=== PATIENT | male | born 1940 | race Caucasian/White ===

== ENCOUNTER 2020-12-30 06:54 | Inpatient (IN) | payer MEDICARE, OTHER ==
[~2020-12-30 06:54] MED LIST: Povidone-Iodine 10% Soln 118.25 ML Bottle ONE
[2020-12-30] MEDS ORDERED: Lactated Ringers 1,000 ML IV SCH (07:30)
[2020-12-30] MEDS ORDERED: Nozin Nasal Sanitizer NASBOTH ONE (08:00)
[2020-12-30] MEDS ORDERED: fentaNYL 100 MCG/2 ML SDV ONE (08:29)
[2020-12-30] MEDS ORDERED: Propofol 200 MG/20 ML SDV ONE (08:29)
[2020-12-30] MEDS ORDERED: ceFAZolin 2 GM in Premix Bag 1 BAG IV ONE (08:30)
[2020-12-30] MEDS ORDERED: Midazolam 1 MG/ML 2 ML SDV ONE ×2 (08:30→08:56)
[2020-12-30] MEDS ORDERED: ePHEDrine 50 MG/ML SDV ONE (10:14)
[2020-12-30] MEDS ORDERED: Ondansetron 4 MG/2 ML SDV IVPUSH PRN (11:34)
[2020-12-30] MEDS ORDERED: Magnesium Hydroxide 400 MG/5 ML Susp 30 ML Cup PO PRN (11:34)
[2020-12-30] MEDS ORDERED: Nitroglycerin 0.4 MG Tab.SL SL PRN (11:40)
[2020-12-30] MEDS ORDERED: diphenhydrAMINE 25 MG Cap PO PRN (11:44)
[2020-12-30] MEDS ORDERED: ceFAZolin 1 GM in Sodium Chloride 0.9% 50 ML IV SCH ×2 (11:45→12:30)
[2020-12-30] MEDS ORDERED: Sodium Chloride 0.9% 1,000 ML IV SCH (11:45)
[2020-12-30] MEDS: Acetaminophen/oxyCODONE 325-5 MG Tab PO PRN ×2 (12:38→21:15)
[2020-12-30] MEDS: Morphine 2 MG/ML SYRINGE IV PRN ×2 (13:36→14:34)
--- NOTE | 2020-12-30 14:55 | CR ---
Pelvis 1V or 2V CLINICAL HISTORY: Status post DAVIN FINDINGS: Patient is status post recent total hip arthroplasty. Components appear well seated. There is some osteoarthritic change in the right hip IMPRESSION: Status post total left hip arthroplasty
[2020-12-30] MEDS ORDERED: Ketorolac 30 MG/ML SDV IVPUSH ONE (15:40)
[2020-12-30] MEDS: ceFAZolin 1 GM in Premix Bag 1 BAG IV SCH (17:55)
[2020-12-30] MEDS ORDERED: GLUCOSAMINE SULFATE 1000 MG PO SCH ×2 (21:00)
[2020-12-30] MEDS ORDERED: [UNRECOGNIZED DRUG - OTHER] PO SCH ×2 (21:00)
[2020-12-30] MEDS ORDERED: Docusate Sodium 100 MG Cap PO SCH (21:00)
[2020-12-30] MEDS: LORazepam 1 MG Tab PO PRN (21:15)
[2020-12-30] MEDS: Docusate Sodium 100 MG Cap PO SCH (21:17)
[2020-12-30] MEDS: GLUCOSAMINE 1000 MG PO SCH (21:17)
[2020-12-30] MEDS: Nozin Nasal Sanitizer NASBOTH SCH (21:23)
[2020-12-30] MEDS: Cyclobenzaprine 10 MG Tab PO PRN (23:33)
[2020-12-31] MEDS: ceFAZolin 1 GM in Premix Bag 1 BAG IV SCH ×2 (02:34→10:40)
[2020-12-31] MEDS: Acetaminophen/oxyCODONE 325-5 MG Tab PO PRN ×2 (02:38→10:40)
--- NOTE | 2020-12-31 08:31 | PCM.SURGPN ---
- General Info Date of Service: 12/31/20 Date of Surgery/Procedure: 12/30/20 POD#: 1 Post-Op Diagnosis: left hip osteoarthritis Functional Status: Reports: Pain Controlled, Tolerating Diet - Review of Systems General: Reports: No Symptoms Musculoskeletal: Reports: Leg Pain (left ), Joint Pain (left hip ) Skin: Reports: Other (dried drainage from incision ) Neurological: Reports: No Symptoms Psychiatric: Reports: No Symptoms - Patient Data Vitals - Most Recent: Last Vital Signs Temp 96.9 F 12/31/20 07:26 Pulse 75 12/31/20 07:26 Resp 18 12/31/20 07:26 BP 114/64 12/31/20 07:26 Pulse Ox 95 12/31/20 07:26 Weight - Most Recent: 204 lb I&O - Last 24 Hours: Intake & Output 12/30/20 12/31/20 12/31/20 22:59 06:59 14:59 Intake Total 715 1413 Output Total 700 750 Balance 15 663 Lab Results Last 24 Hrs: Laboratory Results - last 24 hr 12/30/20 12/31/20 12/31/20 Range/Units 18:25 06:03 07:48 WBC 7.1 (4.5-11.0) K/uL RBC 3.37 L (4.30-5.90) M/uL Hgb 10.8 L (12.0-15.0) g/dL Hct 31.6 L (40.0-54.0) % MCV 94 (80-98) fL MCH 32 H (27-31) pg MCHC 34 (32-36) % Plt Count 182 (150-400) K/uL POC Glucose 177 H 167 H (74-106) mg/dL Med Orders - Current: Current Medications Acetaminophen (Acetaminophen 325 Mg Tab) 650 mg PO Q4H PRN PRN Reason: Pain/Fever Hydrocodone Bitart/Acetaminophen (Acetaminophen/Hydrocodone 325-5 Mg Tab) 1 tab PO Q4H PRN PRN Reason: Pain (mild 1-3) Amlodipine Besylate (Amlodipine 5 Mg Tab) 10 mg PO DAILY [facility] Bandage/Support Products (Nozin Nasal Clinical Auditor) 1 applic NASBOTH BID SHANELLE Stop: 01/06/21 21:01 Last Admin: 12/30/20 21:23 Dose: 1 applic Documented by: Clopidogrel Bisulfate (Clopidogrel 75 Mg Tab) 75 mg PO DAILY [facility] Cyclobenzaprine HCl (Cyclobenzaprine 10 Mg Tab) 10 mg PO BID PRN PRN Reason: Muscle Spasm - Painful Last Admin: 12/30/20 23:33 Dose: 10 mg Documented by: Diphenhydramine HCl (Diphenhydramine 25 Mg Cap) 25 mg PO Q6H PRN PRN Reason: Itching Docusate Sodium (Docusate Sodium 100 Mg Cap) 100 mg PO BID [facility] Last Admin: 12/30/20 21:17 Dose: 100 mg Documented by: Glimepiride (Glimepiride 2 Mg Tab) 4 mg PO DAILY [facility] Hydrochlorothiazide (Hydrochlorothiazide 25 Mg Tab) 25 mg PO DAILY [facility] Sodium Chloride (Normal Saline) 1,000 mls @ 125 mls/hr IV ASDIRECTED [facility] Last Admin: 12/30/20 23:33 Dose: 125 mls/hr Documented by: Cefazolin Sodium/Dextrose 1 gm (/ Premix) 50 mls @ 100 mls/hr IV Q8H [facility] Stop: 12/31/20 10:29 Last Admin: 12/31/20 02:34 Dose: 100 mls/hr Documented by: Lorazepam (Lorazepam 1 Mg Tab) 1 mg PO BID PRN PRN Reason: Anxiety Last Admin: 12/30/20 21:15 Dose: 1 mg Documented by: Losartan Potassium (Losartan 50 Mg Tab) 100 mg PO DAILY [facility] Magnesium Hydroxide (Magnesium Hydroxide 400 Mg/5 Ml Susp 30 Ml Cup) 30 ml PO Q6H PRN PRN Reason: Stool Softener Metoprolol Succinate (Metoprolol Succinate 25 Mg Tab.Er) 25 mg PO DAILY [facility] Morphine Sulfate (Morphine 2 Mg/Ml Syringe) 1 mg IV Q1H PRN PRN Reason: Breakthrough Pain Last Admin: 12/30/20 14:34 Dose: 1 mg Documented by: Niacin (Niacin 250 Mg Tab.Er) 500 mg PO DAILY [facility] Nitroglycerin (Nitroglycerin 0.4 Mg Tab.Sl) 0.4 mg SL ASDIRECTED PRN PRN Reason: Other Ondansetron HCl (Ondansetron 4 Mg/2 Ml Sdv) 4 mg IVPUSH Q6H PRN PRN Reason: Nausea/Vomiting Oxycodone/Acetaminophen (Acetaminophen/Oxycodone 325-5 Mg Tab) 1 - 2 tab PO Q4H PRN PRN Reason: Pain Last Admin: 12/31/20 02:38 Dose: 2 tab Documented by: Glucosamine 1,000mg (Tab (Ptom)) 1 each PO BID [facility] Last Admin: 12/30/20 21:17 Dose: Not Given Documented by: Rosuvastatin Calcium (Rosuvastatin 10 Mg Tab) 10 mg PO DAILY [facility] Discontinued Medications Amlodipine Besylate (Amlodipine 5 Mg Tab) 10 mg PO DAILY [facility] Bandage/Support Products (Nozin Nasal Clinical Auditor) 1 applic NASBOTH ONETIME ONE Stop: 12/30/20 08:01 Last Admin: 12/30/20 08:20 Dose: 3 swab Documented by: Clopidogrel Bisulfate (Clopidogrel 75 Mg Tab) 75 mg PO DAILY [facility] Docusate Sodium (Docusate Sodium 100 Mg Cap) 100 mg PO BID [facility] Ephedrine Sulfate (Ephedrine 50 Mg/Ml Sdv) Confirm Administered Dose 50 mg .ROUTE .STK-MED ONE Stop: 12/30/20 10:15 Fentanyl (Fentanyl 100 Mcg/2 Ml Sdv) Confirm Administered Dose 100 mcg .ROUTE .STK-MED ONE Stop: 12/30/20 08:30 Lactated Ringer's (Ringers, Lactated) 1,000 mls @ 75 mls/hr IV ASDIRECTED [facility] Last Admin: 12/30/20 08:21 Dose: 75 mls/hr Documented by: Cefazolin Sodium/Dextrose 2 gm (/ Premix) 50 mls @ 100 mls/hr IV ONETIME ONE Stop: 12/30/20 08:59 Last Admin: 12/30/20 09:47 Dose: 100 mls/hr Documented by: Cefazolin Sodium 1 gm/ Sodium (Chloride) 50 mls @ 200 mls/hr IV Q8H [facility] Stop: 12/31/20 03:59 Last Admin: 12/30/20 15:29 Dose: Not Given Documented by: Ketorolac Tromethamine (Ketorolac 30 Mg/Ml Sdv) 30 mg IVPUSH ONETIME ONE Stop: 12/30/20 15:41 Last Admin: 12/30/20 15:49 Dose: 30 mg Documented by: Metoprolol Succinate (Metoprolol Succinate 25 Mg Tab.Er) 25 mg PO DAILY [facility] Midazolam HCl (Midazolam 1 Mg/Ml 2 Ml Sdv) Confirm Administered Dose 2 mg .ROUTE .STK-MED ONE Stop: 12/30/20 08:31 Midazolam HCl (Midazolam 1 Mg/Ml 2 Ml Sdv) Confirm Administered Dose 2 mg .ROUTE .STK-MED ONE Stop: 12/30/20 08:57 Non-Formulary Medication (Glimepiride [Glimepiride]) 4 mg PO DAILY [facility] Non-Formulary Medication (Glucosamine Sulfate 2kcl [Glucosamine]) 1 tab PO BID [facility] Non-Formulary Medication (Hydrochlorothiazide/Losartan [Hyzaar 100-25 Mg]) 1 tab PO DAILY [facility] Non-Formulary Medication (Niacin [Niacin]) 500 mg PO DAILY [facility] Non-Formulary Medication (Rosuvastatin [Crestor]) 20 mg PO DAILY [facility] Povidone Iodine (Povidone-Iodine 10% Soln 118.25 Ml Bottle) Confirm Administered Dose 1 ml .ROUTE .STK-MED ONE Stop: 12/30/20 06:25 Last Admin: 12/30/20 10:31 Dose: 15 ml Documented by: Propofol (Propofol 200 Mg/20 Ml Sdv) Confirm Administered Dose 200 mg .ROUTE .STK-MED ONE Stop: 12/30/20 08:30 - Exam Wound/Incisions: Dressing Dry and Intact Quality Assessment: DVT Prophylaxis General: Alert, Oriented, Cooperative, No Acute Distress Extremities: Leg Pain, Increased Warmth Skin: Dry, Intact Neurological: No New Focal Deficit Psy/Mental Status: Alert, Normal Affect, Normal Mood Sepsis Event Note - Evaluation Sepsis Screening Result: No Definite Risk - Focused Exam Vital Signs: Vital Signs Temp Pulse Resp BP Pulse Ox 12/31/20 07:26 96.9 F 75 18 114/64 95 12/31/20 02:35 95 F L 79 16 120/58 L 99 12/30/20 23:34 97.1 F 80 16 126/61 97 - Problem List & Annotations (1) Postoperative anemia due to acute blood loss SNOMED Code(s): 58576662047648485 Code(s): D62 - ACUTE POSTHEMORRHAGIC ANEMIA Status: Acute Current Visit: Yes (2) Status post total replacement of left hip SNOMED Code(s): 097571335921, 813920341542 Code(s): Z96.642 - PRESENCE OF LEFT ARTIFICIAL HIP JOINT Status: Acute Current Visit: Yes - Problem List Review Problem List Initiated/Reviewed/Updated: Yes - My Orders Last 24 Hours: Active Orders 24 hr Category Date Time Status Patient Status [ADT] Routine ADT 12/30/20 11:34 Active Ambulate [RC] PER UNIT ROUTINE Care 12/30/20 11:34 Active Head of Bed Elevation [RC] ASDIRECTED Care 12/30/20 11:34 Active Intake and Output [RC] PER UNIT ROUTINE Care 12/30/20 11:34 Active Neurovascular Check [RC] BID Care 12/30/20 11:34 Active Notify Provider Intake and Out [RC] ASDIRECTED Care 12/30/20 11:34 Active Notify Provider Vital Signs [RC] ASDIRECTED Care 12/30/20 11:34 Active Oxygen Therapy [RC] PRN Care 12/30/20 11:34 Active POC Glucose [Blood Glucose Check, Bedside] [RC] Care 12/30/20 11:54 Active BIDMEALS Pneumonia Education [RC] UPON Care 12/30/20 11:34 Active Pulse Oximetry [RC] INTERMITTENT Care 12/30/20 11:34 Active RT Incentive Spirometry [RC] Q1HWA Care 12/30/20 11:34 Active Up to Chair [RC] QID Care 12/30/20 11:34 Active Vital Signs [RC] PER UNIT ROUTINE Care 12/30/20 11:34 Active Wound Care [RC] Q12H Care 12/30/20 11:34 Active Consult to Case Management/Manager Technical [CONS] Cons 12/30/20 11:34 Active Routine OT Evaluation and Treatment [CONS] Routine Cons 12/30/20 11:37 Active PT Evaluation and Treatment [CONS] Routine Cons 12/30/20 11:34 Active PT Evaluation and Treatment [CONS] Routine Cons 12/30/20 11:34 Active Consistent Carbohydrate Diet [DIET] Diet 12/30/20 Lunch Active GLUCOSE POC LAB TO COLLECT JPM [POC] BIDAC Lab 12/31/20 17:00 Ordered GLUCOSE POC LAB TO COLLECT JPM [POC] BIDAC Lab 01/01/21 08:00 Ordered GLUCOSE POC LAB TO COLLECT JPM [POC] BIDAC Lab 01/01/21 17:00 Ordered GLUCOSE POC LAB TO COLLECT JPM [POC] BIDAC Lab 01/02/21 08:00 Ordered GLUCOSE POC LAB TO COLLECT JPM [POC] BIDAC Lab 01/02/21 17:00 Ordered GLUCOSE POC LAB TO COLLECT JPM [POC] BIDAC Lab 01/03/21 08:00 Ordered GLUCOSE POC LAB TO COLLECT JPM [POC] BIDAC Lab 01/03/21 17:00 Ordered GLUCOSE POC LAB TO COLLECT JPM [POC] BIDAC Lab 01/04/21 08:00 Ordered GLUCOSE POC LAB TO COLLECT JPM [POC] BIDAC Lab 01/04/21 17:00 Ordered GLUCOSE POC LAB TO COLLECT JPM [POC] BIDAC Lab 01/05/21 08:00 Ordered GLUCOSE POC LAB TO COLLECT JPM [POC] BIDAC Lab 01/05/21 17:00 Ordered GLUCOSE POC LAB TO COLLECT JPM [POC] BIDAC Lab 01/06/21 08:00 Ordered GLUCOSE POC LAB TO COLLECT JPM [POC] BIDAC Lab 01/06/21 17:00 Ordered Acetaminophen [TylenoL] Med 12/30/20 11:34 Active 650 mg PO Q4H PRN Acetaminophen/HYDROcodone [Taberg 325-5 MG] Med 12/30/20 11:34 Active 1 tab PO Q4H PRN Acetaminophen/oxyCODONE [Percocet 325-5 MG] Med 12/30/20 11:43 Active 1 - 2 tab PO Q4H PRN Clopidogrel [Plavix] Med 12/31/20 09:00 Active 75 mg PO DAILY Cyclobenzaprine [Flexeril] Med 12/30/20 16:35 Active 10 mg PO BID PRN Docusate Sodium [Colace] Med 12/30/20 21:00 Active 100 mg PO BID Glimepiride [Amaryl] Med 12/31/20 09:00 Active 4 mg PO DAILY LORazepam [Ativan] Med 12/30/20 11:40 Active 1 mg PO BID PRN Losartan [Cozaar] Med 12/31/20 09:00 Active 100 mg PO DAILY Magnesium Hydroxide [Milk of Magnesia] Med 12/30/20 11:34 Active 30 ml PO Q6H PRN Metoprolol Succinate [Toprol XL] Med 12/31/20 09:00 Active 25 mg PO DAILY Morphine Med 12/30/20 11:34 Active 1 mg IV Q1H PRN Niacin [Slo-Niacin] Med 12/31/20 09:00 Active 500 mg PO DAILY Nitroglycerin [Nitrostat] Med 12/30/20 11:40 Active 0.4 mg SL ASDIRECTED PRN Nozin [ Nasal Clinical Auditor] Med 12/30/20 21:00 Active 1 applic NASBOTH BID Ondansetron [Zofran] Med 12/30/20 11:34 Active 4 mg IVPUSH Q6H PRN Patient's Own Medication [Ptom] Med 12/30/20 21:00 Active 1 each PO BID Rosuvastatin [Crestor] Med 12/31/20 09:00 Active 10 mg PO DAILY Sodium Chloride 0.9% [Normal Saline] 1,000 ml Med 12/30/20 11:45 Active IV ASDIRECTED amLODIPine [Norvasc] Med 12/31/20 09:00 Active 10 mg PO DAILY ceFAZolin [Ancef 1 GM/50 ML] 1 gm Med 12/30/20 18:00 Active Premix Bag 1 bag IV Q8H diphenhydrAMINE [Benadryl] Med 12/30/20 11:44 Active 25 mg PO Q6H PRN hydroCHLOROthiazide Med 12/31/20 09:00 Active 25 mg PO DAILY Antiembolic Hose [OM.PC] Per Unit Routine Oth 12/30/20 11:34 Ordered DME for Inpatients [OM.PC] Routine Oth 12/30/20 11:34 Ordered DVT/VTE Prophylaxis Reflex [OM.PC] Routine Oth 12/30/20 11:34 Ordered Ice Therapy [OM.PC] Per Unit Routine Oth 12/30/20 11:34 Ordered Oral Care [OM.PC] Routine Oth 12/30/20 11:34 Ordered Sequential Compression Device [OM.PC] Routine Oth 12/30/20 11:34 Ordered Weight bearing status [OM.PC] Routine Oth 12/30/20 11:34 Ordered Resuscitation Status Routine Resus Stat 12/30/20 11:34 Ordered EKG 12 Lead [EK] Urgent Ther 12/30/20 07:20 Ordered Medication Orders Acetaminophen (Acetaminophen 325 Mg Tab) 650 mg PO Q4H PRN PRN Reason: Pain/Fever Hydrocodone Bitart/Acetaminophen (Acetaminophen/Hydrocodone 325-5 Mg Tab) 1 tab PO Q4H PRN PRN Reason: Pain (mild 1-3) Amlodipine Besylate (Amlodipine 5 Mg Tab) 10 mg PO DAILY [facility] Bandage/Support Products (Nozin Nasal Clinical Auditor) 1 applic NASBOTH BID [facility] Stop: 01/06/21 21:01 Last Admin: 12/30/20 21:23 Dose: 1 applic Documented by: FRANCISCO Clopidogrel Bisulfate (Clopidogrel 75 Mg Tab) 75 mg PO DAILY [facility] Cyclobenzaprine HCl (Cyclobenzaprine 10 Mg Tab) 10 mg PO BID PRN PRN Reason: Muscle Spasm - Painful Last Admin: 12/30/20 23:33 Dose: 10 mg Documented by: FRANCISCO Diphenhydramine HCl (Diphenhydramine 25 Mg Cap) 25 mg PO Q6H PRN PRN Reason: Itching Docusate Sodium (Docusate Sodium 100 Mg Cap) 100 mg PO BID [facility] Last Admin: 12/30/20 21:17 Dose: 100 mg Documented by: FRANCISCO Glimepiride (Glimepiride 2 Mg Tab) 4 mg PO DAILY [facility] Hydrochlorothiazide (Hydrochlorothiazide 25 Mg Tab) 25 mg PO DAILY [facility] Sodium Chloride (Normal Saline) 1,000 mls @ 125 mls/hr IV ASDIRECTED [facility] Last Admin: 12/30/20 23:33 Dose: 125 mls/hr Documented by: FRANCISCO Cefazolin Sodium/Dextrose 1 gm (/ Premix) 50 mls @ 100 mls/hr IV Q8H [facility] Stop: 12/31/20 10:29 Last Admin: 12/31/20 02:34 Dose: 100 mls/hr Documented by: Infusion: 12/30/20 18:25 Dose: 100 mls/hr Documented by: Admin: 12/30/20 17:55 Dose: 100 mls/hr Documented by: TAN Lorazepam (Lorazepam 1 Mg Tab) 1 mg PO BID PRN PRN Reason: Anxiety Last Admin: 12/30/20 21:15 Dose: 1 mg Documented by: FRANCISCO Losartan Potassium (Losartan 50 Mg Tab) 100 mg PO DAILY [facility] Magnesium Hydroxide (Magnesium Hydroxide 400 Mg/5 Ml Susp 30 Ml Cup) 30 ml PO Q6H PRN PRN Reason: Stool Softener Metoprolol Succinate (Metoprolol Succinate 25 Mg Tab.Er) 25 mg PO DAILY [facility] Morphine Sulfate (Morphine 2 Mg/Ml Syringe) 1 mg IV Q1H PRN PRN Reason: Breakthrough Pain Last Admin: 12/30/20 14:34 Dose: 1 mg Documented by: Admin: 12/30/20 13:36 Dose: 1 mg Documented by: TIESHA Niacin (Niacin 250 Mg Tab.Er) 500 mg PO DAILY [facility] Nitroglycerin (Nitroglycerin 0.4 Mg Tab.Sl) 0.4 mg SL ASDIRECTED PRN PRN Reason: Other Ondansetron HCl (Ondansetron 4 Mg/2 Ml Sdv) 4 mg IVPUSH Q6H PRN PRN Reason: Nausea/Vomiting Oxycodone/Acetaminophen (Acetaminophen/Oxycodone 325-5 Mg Tab) 1 - 2 tab PO Q4H PRN PRN Reason: Pain Last Admin: 12/31/20 02:38 Dose: 2 tab Documented by: Admin: 12/30/20 21:15 Dose: 2 tab Documented by: Admin: 12/30/20 12:38 Dose: 2 tab Documented by: TAN Glucosamine 1,000mg (Tab (Ptom)) 1 each PO BID [facility] Last Admin: 12/30/20 21:17 Dose: Not Given Documented by: FRANCISCO Rosuvastatin Calcium (Rosuvastatin 10 Mg Tab) 10 mg PO DAILY [facility] - Assessment Assessment (Free Text/Narrative):: Patient is a pleasant 80-year-old male, status post left total hip arthroplasty, postop day #1. No acute events overnight. Patient remains hemodynamically stable, vitals within normal limits. Patient denied subjective fever, chills, dyspnea, chest pain. Endorsed using incentive spirometer 2-3 times hourly. Postop day #1 hemoglobin declined to 10.8. Patient appears asymptomatic with this; had one episode of dizziness last night with sit to stand transfer, but denied any dizziness or lightheadedness thereafter. Patient had difficulty with pain control yesterday afternoon after the block wore off. Since then, patient has obtained good pain control with Percocet and Flexeril. Denied numbness or tingling to the lower extremity. Had one episode of nausea yesterday afternoon, Zofran was utilized. Patient denied any nausea or vomiting since and has been tolerating regular diet well. Patient worked with physical therapy yesterday afternoon following surgery; performed bilateral lower extremity strengthening exercises and transferred from bed to chair with four-wheel walker. Patient also ambulated from bed to bathroom yesterday evening with FWW and x1 assist. Patient did have some drainage from the left hip dressing yesterday evening; nursing staff reinforce dressing with extra ABD. Has had no drainage since. Patient requires inpatient status at this time for further physical therapy services to progress ambulation abilities and for adequate pain control with PO medications prior to discharge home. Exam: Left lower extremity neurovascular intact. Calf is soft and supple. Dried drainage on left hip dressing, no active drainage. No surrounding ecchymosis of L hip. Mild warmth to touch of left hip. Mild edema of left lower extremity compared to right lower extremity. Dorsiflexion 4+/5. Plantar flexion 5/5. Plan: * Participate to in physical therapy and occupational therapy daily while in the hospital. * Postoperative anemia stable at this time; may recheck CBC if patient becomes symptomatic. * Continue with current pain regimen. * Nursing staff may discontinue holland this morning and saline lock patients IV; this was communicated to nursing staff this morning. * Dressing change will be performed on POD#2 by orthopedic provider. * Continue with mechanical DVT/VTE prophylaxis with bilateral SCDs, chemical prophylaxis with patient's home clopidogrel dose. * Anticipate discharge to home when medically stable, pain controlled with PO medications, and ambulation abilities progress. Patient interested in outpatient PT at time of discharge.
[2020-12-31] MEDS: Nozin Nasal Sanitizer NASBOTH SCH ×2 (08:46→20:20)
[2020-12-31] MEDS: GLUCOSAMINE 1000 MG PO SCH ×2 (08:46→21:51)
[2020-12-31] MEDS: Glimepiride 2 MG Tab PO SCH (08:48)
[2020-12-31] MEDS: Niacin 250 MG Tab.ER PO SCH (08:48)
[2020-12-31] MEDS: Rosuvastatin 10 MG Tab PO SCH (08:48)
[2020-12-31] MEDS: amLODIPine 5 MG Tab PO SCH (08:48)
[2020-12-31] MEDS: Metoprolol Succinate 25 MG Tab.ER PO SCH (08:49)
[2020-12-31] MEDS: Losartan 50 MG Tab PO SCH (08:49)
[2020-12-31] MEDS: Hydrochlorothiazide 25 MG Tab PO SCH (08:49)
[2020-12-31] MEDS: Clopidogrel 75 MG Tab PO SCH (08:50)
[2020-12-31] MEDS: Docusate Sodium 100 MG Cap PO SCH ×2 (08:50→20:20)
[2020-12-31] MEDS ORDERED: GLIMEPIRIDE 4 MG PO SCH ×2 (09:00)
[2020-12-31] MEDS ORDERED: amLODIPine 5 MG Tab PO SCH (09:00)
[2020-12-31] MEDS ORDERED: Non-Formulary Medication 1 Each (Niacin [Niacin] 500 MG Tablet) PO SCH ×2 (09:00)
[2020-12-31] MEDS ORDERED: LOSARTAN PO SCH ×2 (09:00)
[2020-12-31] MEDS ORDERED: Metoprolol Succinate 25 MG Tab.ER PO SCH (09:00)
[2020-12-31] MEDS ORDERED: Non-Formulary Medication 1 Each (Rosuvastatin [Crestor] 20 MG Tablet) PO SCH ×2 (09:00)
[2020-12-31] MEDS ORDERED: [UNRECOGNIZED DRUG - OTHER] PO SCH ×2 (09:00)
[2020-12-31] MEDS ORDERED: HYDROCHLOROTHIAZIDE PO SCH ×2 (09:00)
[2020-12-31] MEDS ORDERED: Clopidogrel 75 MG Tab PO SCH (09:00)
[2020-12-31] MEDS: Cyclobenzaprine 10 MG Tab PO PRN (15:00)
[2020-12-31] MEDS: Acetaminophen/HYDROcodone 325-5 MG Tab PO PRN (20:19)
[2020-12-31] MEDS: Acetaminophen 325 MG Tab PO PRN (22:35)
[2020-12-31] MEDS: LORazepam 1 MG Tab PO PRN (22:35)
[2021-01-01] MEDS: Acetaminophen/HYDROcodone 325-5 MG Tab PO PRN (01:26)
[2021-01-01] MEDS: Cyclobenzaprine 10 MG Tab PO PRN (01:55)
[2021-01-01] MEDS: Nozin Nasal Sanitizer NASBOTH SCH ×2 (08:20→21:20)
[2021-01-01] MEDS: Acetaminophen/oxyCODONE 325-5 MG Tab PO PRN ×4 (08:20→22:45)
[2021-01-01] MEDS: Losartan 50 MG Tab PO SCH (08:21)
[2021-01-01] MEDS: Glimepiride 2 MG Tab PO SCH (08:21)
[2021-01-01] MEDS: Docusate Sodium 100 MG Cap PO SCH ×2 (08:21→21:21)
[2021-01-01] MEDS: Rosuvastatin 10 MG Tab PO SCH (08:22)
[2021-01-01] MEDS: amLODIPine 5 MG Tab PO SCH (08:22)
[2021-01-01] MEDS: Hydrochlorothiazide 25 MG Tab PO SCH (08:22)
[2021-01-01] MEDS: Clopidogrel 75 MG Tab PO SCH (08:22)
[2021-01-01] MEDS: GLUCOSAMINE 1000 MG PO SCH ×2 (08:23→21:21)
[2021-01-01] MEDS: Niacin 250 MG Tab.ER PO SCH (08:23)
[2021-01-01] MEDS: Metoprolol Succinate 25 MG Tab.ER PO SCH (08:23)
[2021-01-01] MEDS: Acetaminophen 325 MG Tab PO PRN (11:44)
--- NOTE | 2021-01-01 19:26 | PCM.SURGPN ---
- General Info Date of Service: 01/01/21 Date of Surgery/Procedure: 12/30/20 POD#: 2 Post-Op Diagnosis: left hip osteoarthritis Functional Status: Reports: Tolerating Diet, Ambulating (with fww, x1 standby assist ), Urinating, Incentive Spirometry - Review of Systems General: Reports: No Symptoms HEENT: Reports: No Symptoms Pulmonary: Reports: No Symptoms Cardiovascular: Reports: No Symptoms Gastrointestinal: Reports: No Symptoms Genitourinary: Reports: No Symptoms Musculoskeletal: Reports: Leg Pain (L ), Joint Pain (L hip ) Skin: Reports: Bruising Neurological: Reports: No Symptoms Psychiatric: Reports: No Symptoms - Patient Data Vitals - Most Recent: Last Vital Signs Temp 96.1 F L 01/01/21 15:00 Pulse 70 01/01/21 15:00 Resp 16 01/01/21 15:00 BP 126/55 L 01/01/21 15:00 Pulse Ox 95 01/01/21 15:00 Weight - Most Recent: 204 lb 0.005 oz I&O - Last 24 Hours: Intake & Output 01/01/21 01/01/21 01/01/21 06:59 14:59 22:59 Intake Total 300 480 Balance 300 480 Lab Results Last 24 Hrs: Laboratory Results - last 24 hr 01/01/21 01/01/21 Range/Units 08:06 16:58 POC Glucose 92 147 H (74-106) mg/dL Med Orders - Current: Current Medications Acetaminophen (Acetaminophen 325 Mg Tab) 650 mg PO Q4H PRN PRN Reason: Pain/Fever Last Admin: 01/01/21 11:44 Dose: 650 mg Documented by: Hydrocodone Bitart/Acetaminophen (Acetaminophen/Hydrocodone 325-5 Mg Tab) 1 tab PO Q4H PRN PRN Reason: Pain (mild 1-3) Last Admin: 01/01/21 01:26 Dose: 1 tab Documented by: Amlodipine Besylate (Amlodipine 5 Mg Tab) 10 mg PO DAILY [facility] Last Admin: 01/01/21 08:22 Dose: 10 mg Documented by: Bandage/Support Products (Nozin Nasal Welder 2Nd Shift) 1 applic NASBOTH BID [facility] Stop: 01/06/21 21:01 Last Admin: 01/01/21 08:20 Dose: 1 applic Documented by: Clopidogrel Bisulfate (Clopidogrel 75 Mg Tab) 75 mg PO DAILY [facility] Last Admin: 01/01/21 08:22 Dose: 75 mg Documented by: Cyclobenzaprine HCl (Cyclobenzaprine 10 Mg Tab) 10 mg PO BID PRN PRN Reason: Muscle Spasm - Painful Last Admin: 01/01/21 01:55 Dose: 10 mg Documented by: Diphenhydramine HCl (Diphenhydramine 25 Mg Cap) 25 mg PO Q6H PRN PRN Reason: Itching Last Admin: 12/31/20 22:35 Dose: 25 mg Documented by: Docusate Sodium (Docusate Sodium 100 Mg Cap) 100 mg PO BID [facility] Last Admin: 01/01/21 08:21 Dose: 100 mg Documented by: Glimepiride (Glimepiride 2 Mg Tab) 4 mg PO DAILY [facility] Last Admin: 01/01/21 08:21 Dose: 4 mg Documented by: Hydrochlorothiazide (Hydrochlorothiazide 25 Mg Tab) 25 mg PO DAILY [facility] Last Admin: 01/01/21 08:22 Dose: 25 mg Documented by: Sodium Chloride (Normal Saline) 1,000 mls @ 125 mls/hr IV ASDIRECTED [facility] Last Admin: 12/30/20 23:33 Dose: 125 mls/hr Documented by: Lorazepam (Lorazepam 1 Mg Tab) 1 mg PO BID PRN PRN Reason: Anxiety Last Admin: 12/31/20 22:35 Dose: 1 mg Documented by: Losartan Potassium (Losartan 50 Mg Tab) 100 mg PO DAILY [facility] Last Admin: 01/01/21 08:21 Dose: 100 mg Documented by: Magnesium Hydroxide (Magnesium Hydroxide 400 Mg/5 Ml Susp 30 Ml Cup) 30 ml PO Q6H PRN PRN Reason: Stool Softener Metoprolol Succinate (Metoprolol Succinate 25 Mg Tab.Er) 25 mg PO DAILY [facility] Last Admin: 01/01/21 08:23 Dose: 25 mg Documented by: Morphine Sulfate (Morphine 2 Mg/Ml Syringe) 1 mg IV Q1H PRN PRN Reason: Breakthrough Pain Last Admin: 12/30/20 14:34 Dose: 1 mg Documented by: Niacin (Niacin 250 Mg Tab.Er) 500 mg PO DAILY [facility] Last Admin: 01/01/21 08:23 Dose: 500 mg Documented by: Nitroglycerin (Nitroglycerin 0.4 Mg Tab.Sl) 0.4 mg SL ASDIRECTED PRN PRN Reason: Other Ondansetron HCl (Ondansetron 4 Mg/2 Ml Sdv) 4 mg IVPUSH Q6H PRN PRN Reason: Nausea/Vomiting Oxycodone/Acetaminophen (Acetaminophen/Oxycodone 325-5 Mg Tab) 1 - 2 tab PO Q4H PRN PRN Reason: Pain Last Admin: 01/01/21 18:40 Dose: 2 tab Documented by: Glucosamine 1,000mg (Tab (Ptom)) 1 each PO BID [facility] Last Admin: 01/01/21 08:23 Dose: Not Given Documented by: Rosuvastatin Calcium (Rosuvastatin 10 Mg Tab) 10 mg PO DAILY [facility] Last Admin: 01/01/21 08:22 Dose: 10 mg Documented by: Discontinued Medications Amlodipine Besylate (Amlodipine 5 Mg Tab) 10 mg PO DAILY [facility] Bandage/Support Products (Nozin Nasal Welder 2Nd Shift) 1 applic NASBOTH ONETIME ONE Stop: 12/30/20 08:01 Last Admin: 12/30/20 08:20 Dose: 3 swab Documented by: Clopidogrel Bisulfate (Clopidogrel 75 Mg Tab) 75 mg PO DAILY [facility] Docusate Sodium (Docusate Sodium 100 Mg Cap) 100 mg PO BID [facility] Ephedrine Sulfate (Ephedrine 50 Mg/Ml Sdv) Confirm Administered Dose 50 mg .ROUTE .STK-MED ONE Stop: 12/30/20 10:15 Fentanyl (Fentanyl 100 Mcg/2 Ml Sdv) Confirm Administered Dose 100 mcg .ROUTE .STK-MED ONE Stop: 12/30/20 08:30 Lactated Ringer's (Ringers, Lactated) 1,000 mls @ 75 mls/hr IV ASDIRECTED [facility] Last Admin: 12/30/20 08:21 Dose: 75 mls/hr Documented by: Cefazolin Sodium/Dextrose 2 gm (/ Premix) 50 mls @ 100 mls/hr IV ONETIME ONE Stop: 12/30/20 08:59 Last Admin: 12/30/20 09:47 Dose: 100 mls/hr Documented by: Cefazolin Sodium 1 gm/ Sodium (Chloride) 50 mls @ 200 mls/hr IV Q8H [facility] Stop: 12/31/20 03:59 Last Admin: 12/30/20 15:29 Dose: Not Given Documented by: Cefazolin Sodium/Dextrose 1 gm (/ Premix) 50 mls @ 100 mls/hr IV Q8H [facility] Stop: 12/31/20 10:29 Last Admin: 12/31/20 10:40 Dose: 100 mls/hr Documented by: Ketorolac Tromethamine (Ketorolac 30 Mg/Ml Sdv) 30 mg IVPUSH ONETIME ONE Stop: 12/30/20 15:41 Last Admin: 12/30/20 15:49 Dose: 30 mg Documented by: Metoprolol Succinate (Metoprolol Succinate 25 Mg Tab.Er) 25 mg PO DAILY [facility] Midazolam HCl (Midazolam 1 Mg/Ml 2 Ml Sdv) Confirm Administered Dose 2 mg .ROUTE .STK-MED ONE Stop: 12/30/20 08:31 Midazolam HCl (Midazolam 1 Mg/Ml 2 Ml Sdv) Confirm Administered Dose 2 mg .ROUTE .STK-MED ONE Stop: 12/30/20 08:57 Non-Formulary Medication (Glimepiride [Glimepiride]) 4 mg PO DAILY [facility] Non-Formulary Medication (Glucosamine Sulfate 2kcl [Glucosamine]) 1 tab PO BID [facility] Non-Formulary Medication (Hydrochlorothiazide/Losartan [Hyzaar 100-25 Mg]) 1 tab PO DAILY [facility] Non-Formulary Medication (Niacin [Niacin]) 500 mg PO DAILY [facility] Non-Formulary Medication (Rosuvastatin [Crestor]) 20 mg PO DAILY [facility] Povidone Iodine (Povidone-Iodine 10% Soln 118.25 Ml Bottle) Confirm Administered Dose 1 ml .ROUTE .STK-MED ONE Stop: 12/30/20 06:25 Last Admin: 12/30/20 10:31 Dose: 15 ml Documented by: Propofol (Propofol 200 Mg/20 Ml Sdv) Confirm Administered Dose 200 mg .ROUTE .STK-MED ONE Stop: 12/30/20 08:30 - Exam Wound/Incisions: Healing Well, Dressing Dry and Intact, No Drainage Quality Assessment: DVT Prophylaxis General: Alert, Oriented, Cooperative, No Acute Distress Extremities: Normal Capillary Refill, Leg Pain (left ), Limited Range of Motion Skin: Dry, Intact, Other Neurological: No New Focal Deficit Psy/Mental Status: Alert, Normal Affect, Normal Mood Sepsis Event Note - Evaluation Sepsis Screening Result: No Definite Risk - Focused Exam Vital Signs: Vital Signs Temp Pulse Pulse Resp BP BP Pulse Ox 07/14/21 15:00 96.1 F L 70 16 126/55 L 95 01/01/21 11:38 96 F L 76 16 127/51 L 99 01/01/21 08:23 86 142/56 H 01/01/21 08:22 142/56 H 01/01/21 08:21 142/56 H 01/01/21 07:45 97.2 F 86 16 142/56 H 97 - Problem List & Annotations (1) Postoperative anemia due to acute blood loss SNOMED Code(s): 30465817462787872 Code(s): D62 - ACUTE POSTHEMORRHAGIC ANEMIA Status: Acute Current Visit: Yes (2) Status post total replacement of left hip SNOMED Code(s): 462974215503, 005040921664 Code(s): Z96.642 - PRESENCE OF LEFT ARTIFICIAL HIP JOINT Status: Acute Current Visit: Yes - Problem List Review Problem List Initiated/Reviewed/Updated: Yes - My Orders Last 24 Hours: Active Orders 24 hr Category Date Time Status GLUCOSE POC LAB TO COLLECT JPM [POC] BIDAC Lab 01/02/21 08:00 Ordered GLUCOSE POC LAB TO COLLECT JPM [POC] BIDAC Lab 01/02/21 17:00 Ordered GLUCOSE POC LAB TO COLLECT JPM [POC] BIDAC Lab 01/03/21 08:00 Ordered GLUCOSE POC LAB TO COLLECT JPM [POC] BIDAC Lab 01/03/21 17:00 Ordered GLUCOSE POC LAB TO COLLECT JPM [POC] BIDAC Lab 01/04/21 08:00 Ordered GLUCOSE POC LAB TO COLLECT JPM [POC] BIDAC Lab 01/04/21 17:00 Ordered GLUCOSE POC LAB TO COLLECT JPM [POC] BIDAC Lab 01/05/21 08:00 Ordered GLUCOSE POC LAB TO COLLECT JPM [POC] BIDAC Lab 01/05/21 17:00 Ordered GLUCOSE POC LAB TO COLLECT JPM [POC] BIDAC Lab 01/06/21 08:00 Ordered GLUCOSE POC LAB TO COLLECT JPM [POC] BIDAC Lab 01/06/21 17:00 Ordered Medication Orders Acetaminophen (Acetaminophen 325 Mg Tab) 650 mg PO Q4H PRN PRN Reason: Pain/Fever Last Admin: 01/01/21 11:44 Dose: 650 mg Documented by: Admin: 12/31/20 22:35 Dose: 650 mg Documented by: CHRISTIAN Hydrocodone Bitart/Acetaminophen (Acetaminophen/Hydrocodone 325-5 Mg Tab) 1 tab PO Q4H PRN PRN Reason: Pain (mild 1-3) Last Admin: 01/01/21 01:26 Dose: 1 tab Documented by: Admin: 12/31/20 20:19 Dose: 1 tab Documented by: CHRISTIAN Amlodipine Besylate (Amlodipine 5 Mg Tab) 10 mg PO DAILY [facility] Last Admin: 01/01/21 08:22 Dose: 10 mg Documented by: Admin: 12/31/20 08:48 Dose: 10 mg Documented by: TAN Bandage/Support Products (Nozin Nasal Welder 2Nd Shift) 1 applic NASBOTH BID [facility] Stop: 01/06/21 21:01 Last Admin: 01/01/21 08:20 Dose: 1 applic Documented by: Admin: 12/31/20 20:20 Dose: 1 applic Documented by: Admin: 12/31/20 08:46 Dose: 1 applic Documented by: Admin: 12/30/20 21:23 Dose: 1 applic Documented by: FRANCISCO Clopidogrel Bisulfate (Clopidogrel 75 Mg Tab) 75 mg PO DAILY [facility] Last Admin: 01/01/21 08:22 Dose: 75 mg Documented by: Admin: 12/31/20 08:50 Dose: 75 mg Documented by: TAN Cyclobenzaprine HCl (Cyclobenzaprine 10 Mg Tab) 10 mg PO BID PRN PRN Reason: Muscle Spasm - Painful Last Admin: 01/01/21 01:55 Dose: 10 mg Documented by: Admin: 12/31/20 15:00 Dose: 10 mg Documented by: Admin: 12/30/20 23:33 Dose: 10 mg Documented by: FRANCISCO Diphenhydramine HCl (Diphenhydramine 25 Mg Cap) 25 mg PO Q6H PRN PRN Reason: Itching Last Admin: 12/31/20 22:35 Dose: 25 mg Documented by: CHRISTIAN Docusate Sodium (Docusate Sodium 100 Mg Cap) 100 mg PO BID [facility] Last Admin: 01/01/21 08:21 Dose: 100 mg Documented by: Admin: 12/31/20 20:20 Dose: 100 mg Documented by: Admin: 12/31/20 08:50 Dose: 100 mg Documented by: Admin: 12/30/20 21:17 Dose: 100 mg Documented by: FRANCISCO Glimepiride (Glimepiride 2 Mg Tab) 4 mg PO DAILY [facility] Last Admin: 01/01/21 08:21 Dose: 4 mg Documented by: Admin: 12/31/20 08:48 Dose: 4 mg Documented by: TAN Hydrochlorothiazide (Hydrochlorothiazide 25 Mg Tab) 25 mg PO DAILY [facility] Last Admin: 01/01/21 08:22 Dose: 25 mg Documented by: Admin: 12/31/20 08:49 Dose: 25 mg Documented by: TAN Sodium Chloride (Normal Saline) 1,000 mls @ 125 mls/hr IV ASDIRECTED [facility] Last Admin: 12/30/20 23:33 Dose: 125 mls/hr Documented by: FRANCISCO Lorazepam (Lorazepam 1 Mg Tab) 1 mg PO BID PRN PRN Reason: Anxiety Last Admin: 12/31/20 22:35 Dose: 1 mg Documented by: Admin: 12/30/20 21:15 Dose: 1 mg Documented by: FRANCISCO Losartan Potassium (Losartan 50 Mg Tab) 100 mg PO DAILY [facility] Last Admin: 01/01/21 08:21 Dose: 100 mg Documented by: Admin: 12/31/20 08:49 Dose: 100 mg Documented by: TAN Magnesium Hydroxide (Magnesium Hydroxide 400 Mg/5 Ml Susp 30 Ml Cup) 30 ml PO Q6H PRN PRN Reason: Stool Softener Metoprolol Succinate (Metoprolol Succinate 25 Mg Tab.Er) 25 mg PO DAILY [facility] Last Admin: 01/01/21 08:23 Dose: 25 mg Documented by: Admin: 12/31/20 08:49 Dose: 25 mg Documented by: TAN Morphine Sulfate (Morphine 2 Mg/Ml Syringe) 1 mg IV Q1H PRN PRN Reason: Breakthrough Pain Last Admin: 12/30/20 14:34 Dose: 1 mg Documented by: Admin: 12/30/20 13:36 Dose: 1 mg Documented by: TIESHA Niacin (Niacin 250 Mg Tab.Er) 500 mg PO DAILY [facility] Last Admin: 01/01/21 08:23 Dose: 500 mg Documented by: Admin: 12/31/20 08:48 Dose: 500 mg Documented by: TAN Nitroglycerin (Nitroglycerin 0.4 Mg Tab.Sl) 0.4 mg SL ASDIRECTED PRN PRN Reason: Other Ondansetron HCl (Ondansetron 4 Mg/2 Ml Sdv) 4 mg IVPUSH Q6H PRN PRN Reason: Nausea/Vomiting Oxycodone/Acetaminophen (Acetaminophen/Oxycodone 325-5 Mg Tab) 1 - 2 tab PO Q4H PRN PRN Reason: Pain Last Admin: 01/01/21 18:40 Dose: 2 tab Documented by: Admin: 01/01/21 14:28 Dose: 2 tab Documented by: Admin: 01/01/21 08:20 Dose: 2 tab Documented by: Admin: 12/31/20 10:40 Dose: 1 tab Documented by: Admin: 12/31/20 02:38 Dose: 2 tab Documented by: Admin: 12/30/20 21:15 Dose: 2 tab Documented by: Admin: 12/30/20 12:38 Dose: 2 tab Documented by: TAN Glucosamine 1,000mg (Tab (Ptom)) 1 each PO BID [facility] Last Admin: 01/01/21 08:23 Dose: Not Given Documented by: Admin: 12/31/20 21:51 Dose: Not Given Documented by: Admin: 12/31/20 08:46 Dose: Not Given Documented by: Admin: 12/30/20 21:17 Dose: Not Given Documented by: FRANCISCO Rosuvastatin Calcium (Rosuvastatin 10 Mg Tab) 10 mg PO DAILY [facility] Last Admin: 01/01/21 08:22 Dose: 10 mg Documented by: Admin: 12/31/20 08:48 Dose: 10 mg Documented by: TAN - Assessment Assessment (Free Text/Narrative):: Patient is a pleasant 80 y/o male, s/p L total hip arthroplasty, POD #2. No acute events overnight. Patient remains hemodynamically stable. Pain has been well controlled with PO medications; increased pain with ambulation, but tolerable. Denied nausea/emesis. Has been eating consistent carbohydrate diet, tolerating well. Has participated in OT and PT daily; ambulated 290 feet with FWW x1 standby assist. Completed 2 stairs safely. Continues to struggle with left leg transfer into and out of bed. Endorsed some dizziness with sit to stand this morning, but has since improved as the days gone on. Postoperative anemia stable. Denied subjective fever, chills, dyspnea, chest pain, nor malaise. Dressing changed on POD #2. IV saline locked POD #1. Chavez discontinued POD #1. Patient continues to require inpatient status at this time to allow for further therapy services with transferring leg into and out of bed for a safe discharge to home. Exam: L LE neurovascular intact. Incision with steristrips above, dried drainage. No surrounding erythema, active drainage, nor significant warmth to touch. Mild ecchymosis on L thigh. No significant pedal edema. Plan: * Continue with current pain regimen * DVT/VTE prophylaxis with home clopidogrel dosing + bilateral lower extremity SCDs * Continue with physical therapy and occupational therapy daily while inpatient * Anticipate discharge to home with either home health or outpatient PT pending progress tomorrow
[2021-01-02] MEDS: Acetaminophen/oxyCODONE 325-5 MG Tab PO PRN ×3 (03:51→12:42)
[2021-01-02] MEDS: Nozin Nasal Sanitizer NASBOTH SCH (07:59)
[2021-01-02] MEDS: Docusate Sodium 100 MG Cap PO SCH (08:01)
[2021-01-02] MEDS: Clopidogrel 75 MG Tab PO SCH (08:01)
[2021-01-02] MEDS: amLODIPine 5 MG Tab PO SCH (08:01)
[2021-01-02] MEDS: Niacin 250 MG Tab.ER PO SCH (08:02)
[2021-01-02] MEDS: Glimepiride 2 MG Tab PO SCH (08:02)
[2021-01-02] MEDS: Losartan 50 MG Tab PO SCH (08:06)
[2021-01-02] MEDS: Hydrochlorothiazide 25 MG Tab PO SCH (08:07)
[2021-01-02] MEDS: Rosuvastatin 10 MG Tab PO SCH (08:07)
[2021-01-02] MEDS: GLUCOSAMINE 1000 MG PO SCH (08:12)
[2021-01-02] MEDS: Metoprolol Succinate 25 MG Tab.ER PO SCH (08:13)
--- NOTE | 2021-01-02 12:21 | PCM.DCSUM1 ---
Discharge Summary - Hospital Course HPI Initial Comments: Fatimah 80 y/o male with history of chronic hip pain, symptoms refractory to conservative management and elected to undergo surgical treatment. Left total hip arthroplasty performed 12/30/20 and tolerated well with no major complications. Hospital stay prolonged to allow for further therapy services to progress ambulation abilities and functional activities at home. Diagnosis: Stroke: No Modified Brule Scale: No Symptoms at All Modified Felisa Scale Score: 0 - Discharge Data Discharge Date: 01/02/21 Discharge Disposition: Home, Self-Care 01 Condition: Good - Referral to Home Health Date of Face to Face Encounter: 01/02/21 Reason for Homebound Status: motivated to go home, has support at home from spouse Primary Care Physician: Castro Morris MD - Discharge Diagnosis/Problem(s) (1) Postoperative anemia due to acute blood loss SNOMED Code(s): [id number] ICD Code: D62 - ACUTE POSTHEMORRHAGIC ANEMIA Status: Acute Current Visit: Yes (2) Status post total replacement of left hip SNOMED Code(s): 146862790215, 164975555238 ICD Code: Z96.642 - PRESENCE OF LEFT ARTIFICIAL HIP JOINT Status: Acute Current Visit: Yes - Patient Summary/Data Operative Procedure(s) Performed: left total hip arthroplasty Consults: Consultations 12/30/20 11:34 Consult to Case Management/Vocational Trainer [CONS] Routine Comment: Physician Instructions: Discharge placement post hip surgery Service(s) to be Consulted: Case Management Special Instructions: s/p L DAVIN, anticipate d/c to home possibly home with home health pending progress PT Evaluation and Treatment [CONS] Routine Please Evaluate and Treat. PT Reason for Consult: Ambulation Discharge Disposition: Home Special Instructions: posterior hip precautions, WBAT This query below is only for informational purposes and is not editable. PT Evaluation and Treatment [CONS] Routine Please Evaluate and Treat. PT Reason for Consult: Post op Ortho Surgery Hip Pending Discharge: Yes, 2- -3 days Special Instructions: Schedule first outpatient P.T. appointment 3 - 5 days post discharge This query below is only for informational purposes and is not editable. 12/30/20 11:37 OT Evaluation and Treatment [CONS] Routine Please Evaluate and Treat. OT Reason for Consult: ADL's Special Instructions: Status post Hip Surgery This query below is only for informational purposes and is not editable. Hospital Course: Patient is a pleasant 80 y/o male, s/p left total hip arthroplasty, POD #3. Patient tolerated surgery well with no complications. Remained hemodynamically stable throughout hospital stay. POD #1 HgB declined to 10.8; patient did have mild dizziness with sit to stand transfers throughout hospital stay; the few times these did happen coincided with receiving 2 Percocet tabs. Patient seemed to have good pain control without dizziness with a single Percocet tab. Denied fever, chills, dyspnea, chest pain, nor fatigue throughout stay. Patient completed PT and OT daily while in the hospital. Ambulation abilities progressed nicely, able to ambulate 290ft+ with FWW. Demonstrated ability to safely complete stairs and improvements in ability to transfer LLE. Demonstrates competency in ADLs with OT; used assistive leg pathology laboratory aide to aid in transfers. Patient tolerated consistent carbohydrate diet well; endorsed nausea following surgery, but none thereafter. Chavez was discontinued on POD #1. IV saline locked POD #1. Dressing changed on POD #2. Patient was able to shower on POD #3. Patient required inpatient status for additional therapy services to be safe for discharge to home. Patients ambulation abilities have progressed nicely, is no longer having dizziness with transfers, and is suitable for discharge to home at this time. Exam: Left lower extremity neurovascular intact. Left hip with steristrips above incision. No surrounding erythema nor drainage. Mild warmth to touch of left hip. Mild ecchymosis along lateral left hip and thigh. Dorsiflexion: 4+/5. Plantar flexion: 5/5. - Patient Instructions Diet: Usual Diet as Tolerated Activity: Apply Ice, Full Weight Bearing Driving: Do Not Drive Showering/Bathing: Shower in AM Wound/Incision Care: Keep Operative Site/Wound Site Clean and Dry, Change Dressing Daily Notify Provider of: Fever, Increased Pain, Swelling and Redness, Drainage - Discharge Plan *PRESCRIPTION DRUG MONITORING PROGRAM REVIEWED*: Not Applicable *COPY OF PRESCRIPTION DRUG MONITORING REPORT IN PATIENT DISHA: Not Applicable Prescriptions/Med Rec: Acetaminophen/oxyCODONE [Percocet 325-5 MG] 1 - 2 each PO Q6HR PRN #35 tab PRN Reason: Pain Home Medications: Home Meds Aspirin [Halfprin] 81 mg PO DAILY 02/05/20 [History] Glucosamine Sulfate 2KCl [Glucosamine] 1 tab PO BID 02/05/20 [History] Metoprolol Succinate 25 mg PO DAILY 02/05/20 [History] Multivitamin [Multi-Vitamin Daily] 1 tab PO DAILY 02/05/20 [History] Nitroglycerin [Nitrostat] 0.4 mg SL ASDIRECTED PRN 02/05/20 [History] amLODIPine Besylate [Norvasc] 10 mg PO DAILY 02/05/20 [History] Acetaminophen/Diphenhydramine [Acetaminophen-Diphenhyd 500-25] 1 each PO BEDTIME PRN 07/22/20 [History] Hydrochlorothiazide/Losartan [Hyzaar 100-25 MG] 1 tab PO DAILY 12/02/20 [History] Clopidogrel Bisulfate [Plavix] 75 mg PO DAILY 12/30/20 [History] Glimepiride 4 mg PO DAILY 12/30/20 [History] LORazepam [Ativan] 1 mg PO BID PRN 12/30/20 [History] Legatrin Pm 1 tab PO BEDTIME 12/30/20 [History] Niacin 500 mg PO DAILY 12/30/20 [History] Rosuvastatin [Crestor] 10 mg PO DAILY 12/31/20 [History] Acetaminophen/oxyCODONE [Percocet 325-5 MG] 1 - 2 each PO Q6HR PRN #35 tab 01/02/21 [Rx] Oxygen Therapy Mode: Room Air Patient Handouts: Total Hip Replacement, Anterior, Care After, [id number], Preventing Problems After Surgery, Preventing Constipation After Surgery Referrals: Ulises Stewart, PT [Physical Therapist] - 01/09/21 1:00 pm (Please arrive 30 m inutes early to register for appointment.) Lambert Burris MD [Physician] - 01/14/21 9:00 am (Please arrive 15 minutes early to register for your appointment. [place] at the ER desk.) - Discharge Summary/Plan Comment DC Time >30 min.: No Discharge Summary/Plan Comment: * Discharge to home today with wifes support at home; outpatient PT orders have been arranged * Prescription sent to pharmacy for pain control: 5mg-325 mg Percocet, 1-2 tabs q6 hrs prn, #35. Educated on taking NSAIDs for breakthrough pain * Educated patient on constipation with opioids; encouraged to take stool softener while on Percocet * Patient to continue home dose of Clopidogrel for DVT/VTE prophylaxis * Reviewed SSI warning signs with patient; patient expressed understanding and return precautions * Patient to follow up with ortho clinic in 2 weeks for surgical follow up; encouraged to reach out sooner if concerns or questions arise prior to schedu led apt - General Info Functional Status: Reports: Pain Controlled, Tolerating Diet, Ambulating (with FWW ), Urinating, Incentive Spirometry - Review of Systems General: Reports: No Symptoms HEENT: Reports: No Symptoms Pulmonary: Reports: No Symptoms Cardiovascular: Reports: No Symptoms Gastrointestinal: Reports: No Symptoms Genitourinary: Reports: No Symptoms Musculoskeletal: Reports: Leg Pain (left ), Joint Pain (left hip ) Skin: Reports: Bruising Neurological: Reports: No Symptoms Psychiatric: Reports: Anxiety - Patient Data Vitals - Most Recent: Last Vital Signs Temp 95.8 F L 01/02/21 10:45 Pulse 89 01/02/21 10:45 Resp 16 01/02/21 10:45 BP 131/53 L 01/02/21 10:45 Pulse Ox 96 01/02/21 10:45 Weight - Most Recent: 204 lb 0.005 oz I&O - Last 24 hours: Intake & Output 01/01/21 01/02/21 01/02/21 22:59 06:59 14:59 Intake Total 300 Balance 300 Lab Results - Last 24 hrs: Laboratory Results - last 24 hr 01/01/21 01/02/21 Range/Units 16:58 08:02 POC Glucose 147 H 146 H (74-106) mg/dL Med Orders - Current: Current Medications Acetaminophen (Acetaminophen 325 Mg Tab) 650 mg PO Q4H PRN PRN Reason: Pain/Fever Last Admin: 01/01/21 11:44 Dose: 650 mg Documented by: Hydrocodone Bitart/Acetaminophen (Acetaminophen/Hydrocodone 325-5 Mg Tab) 1 tab PO Q4H PRN PRN Reason: Pain (mild 1-3) Last Admin: 01/01/21 01:26 Dose: 1 tab Documented by: Amlodipine Besylate (Amlodipine 5 Mg Tab) 10 mg PO DAILY [facility] Last Admin: 01/02/21 08:01 Dose: 10 mg Documented by: Bandage/Support Products (Nozin Nasal Treating Plant Pumper) 1 applic NASBOTH BID [facility] Stop: 01/06/21 21:01 Last Admin: 01/02/21 07:59 Dose: 1 applic Documented by: Clopidogrel Bisulfate (Clopidogrel 75 Mg Tab) 75 mg PO DAILY [facility] Last Admin: 01/02/21 08:01 Dose: 75 mg Documented by: Cyclobenzaprine HCl (Cyclobenzaprine 10 Mg Tab) 10 mg PO BID PRN PRN Reason: Muscle Spasm - Painful Last Admin: 01/01/21 01:55 Dose: 10 mg Documented by: Diphenhydramine HCl (Diphenhydramine 25 Mg Cap) 25 mg PO Q6H PRN PRN Reason: Itching Last Admin: 12/31/20 22:35 Dose: 25 mg Documented by: Docusate Sodium (Docusate Sodium 100 Mg Cap) 100 mg PO BID [facility] Last Admin: 01/02/21 08:01 Dose: 100 mg Documented by: Glimepiride (Glimepiride 2 Mg Tab) 4 mg PO DAILY [facility] Last Admin: 01/02/21 08:02 Dose: 4 mg Documented by: Hydrochlorothiazide (Hydrochlorothiazide 25 Mg Tab) 25 mg PO DAILY [facility] Last Admin: 01/02/21 08:07 Dose: 25 mg Documented by: Sodium Chloride (Normal Saline) 1,000 mls @ 125 mls/hr IV ASDIRECTED [facility] Last Admin: 12/30/20 23:33 Dose: 125 mls/hr Documented by: Lorazepam (Lorazepam 1 Mg Tab) 1 mg PO BID PRN PRN Reason: Anxiety Last Admin: 12/31/20 22:35 Dose: 1 mg Documented by: Losartan Potassium (Losartan 50 Mg Tab) 100 mg PO DAILY [facility] Last Admin: 01/02/21 08:06 Dose: 100 mg Documented by: Magnesium Hydroxide (Magnesium Hydroxide 400 Mg/5 Ml Susp 30 Ml Cup) 30 ml PO Q6H PRN PRN Reason: Stool Softener Last Admin: 01/01/21 21:25 Dose: 30 ml Documented by: Metoprolol Succinate (Metoprolol Succinate 25 Mg Tab.Er) 25 mg PO DAILY [facility] Last Admin: 01/02/21 08:13 Dose: 25 mg Documented by: Morphine Sulfate (Morphine 2 Mg/Ml Syringe) 1 mg IV Q1H PRN PRN Reason: Breakthrough Pain Last Admin: 12/30/20 14:34 Dose: 1 mg Documented by: Niacin (Niacin 250 Mg Tab.Er) 500 mg PO DAILY [facility] Last Admin: 01/02/21 08:02 Dose: 500 mg Documented by: Nitroglycerin (Nitroglycerin 0.4 Mg Tab.Sl) 0.4 mg SL ASDIRECTED PRN PRN Reason: Other Ondansetron HCl (Ondansetron 4 Mg/2 Ml Sdv) 4 mg IVPUSH Q6H PRN PRN Reason: Nausea/Vomiting Oxycodone/Acetaminophen (Acetaminophen/Oxycodone 325-5 Mg Tab) 1 - 2 tab PO Q4H PRN PRN Reason: Pain Last Admin: 01/02/21 07:58 Dose: 2 tab Documented by: Glucosamine 1,000mg (Tab (Ptom)) 1 each PO BID [facility] Last Admin: 01/02/21 08:12 Dose: Not Given Documented by: Rosuvastatin Calcium (Rosuvastatin 10 Mg Tab) 10 mg PO DAILY [facility] Last Admin: 01/02/21 08:07 Dose: 10 mg Documented by: Discontinued Medications Amlodipine Besylate (Amlodipine 5 Mg Tab) 10 mg PO DAILY [facility] Bandage/Support Products (Nozin Nasal Treating Plant Pumper) 1 applic NASBOTH ONETIME ONE Stop: 12/30/20 08:01 Last Admin: 12/30/20 08:20 Dose: 3 swab Documented by: Clopidogrel Bisulfate (Clopidogrel 75 Mg Tab) 75 mg PO DAILY [facility] Docusate Sodium (Docusate Sodium 100 Mg Cap) 100 mg PO BID [facility] Ephedrine Sulfate (Ephedrine 50 Mg/Ml Sdv) Confirm Administered Dose 50 mg .ROUTE .STK-MED ONE Stop: 12/30/20 10:15 Fentanyl (Fentanyl 100 Mcg/2 Ml Sdv) Confirm Administered Dose 100 mcg .ROUTE .STK-MED ONE Stop: 12/30/20 08:30 Lactated Ringer's (Ringers, Lactated) 1,000 mls @ 75 mls/hr IV ASDIRECTED [facility] Last Admin: 12/30/20 08:21 Dose: 75 mls/hr Documented by: Cefazolin Sodium/Dextrose 2 gm (/ Premix) 50 mls @ 100 mls/hr IV ONETIME ONE Stop: 12/30/20 08:59 Last Admin: 12/30/20 09:47 Dose: 100 mls/hr Documented by: Cefazolin Sodium 1 gm/ Sodium (Chloride) 50 mls @ 200 mls/hr IV Q8H [facility] Stop: 12/31/20 03:59 Last Admin: 12/30/20 15:29 Dose: Not Given Documented by: Cefazolin Sodium/Dextrose 1 gm (/ Premix) 50 mls @ 100 mls/hr IV Q8H [facility] Stop: 12/31/20 10:29 Last Admin: 12/31/20 10:40 Dose: 100 mls/hr Documented by: Ketorolac Tromethamine (Ketorolac 30 Mg/Ml Sdv) 30 mg IVPUSH ONETIME ONE Stop: 12/30/20 15:41 Last Admin: 12/30/20 15:49 Dose: 30 mg Documented by: Metoprolol Succinate (Metoprolol Succinate 25 Mg Tab.Er) 25 mg PO DAILY [facility] Midazolam HCl (Midazolam 1 Mg/Ml 2 Ml Sdv) Confirm Administered Dose 2 mg .ROUTE .STK-MED ONE Stop: 12/30/20 08:31 Midazolam HCl (Midazolam 1 Mg/Ml 2 Ml Sdv) Confirm Administered Dose 2 mg .ROUTE .STK-MED ONE Stop: 12/30/20 08:57 Non-Formulary Medication (Glimepiride [Glimepiride]) 4 mg PO DAILY [facility] Non-Formulary Medication (Glucosamine Sulfate 2kcl [Glucosamine]) 1 tab PO BID [facility] Non-Formulary Medication (Hydrochlorothiazide/Losartan [Hyzaar 100-25 Mg]) 1 tab PO DAILY [facility] Non-Formulary Medication (Niacin [Niacin]) 500 mg PO DAILY [facility] Non-Formulary Medication (Rosuvastatin [Crestor]) 20 mg PO DAILY [facility] Povidone Iodine (Povidone-Iodine 10% Soln 118.25 Ml Bottle) Confirm Administered Dose 1 ml .ROUTE .STK-MED ONE Stop: 12/30/20 06:25 Last Admin: 12/30/20 10:31 Dose: 15 ml Documented by: Propofol (Propofol 200 Mg/20 Ml Sdv) Confirm Administered Dose 200 mg .ROUTE .STK-MED ONE Stop: 12/30/20 08:30 - Exam Quality Assessment: Reports: DVT Prophylaxis General: Reports: Alert, Oriented, Cooperative Extremities: Joint Swelling, Leg Pain (left ) Skin: Reports: Dry, Intact Wound/Incisions: Reports: Healing Well, Dressing Dry and Intact Psy/Mental Status: Reports: Alert, Anxious
[2021-01-02] MEDS: LORazepam 1 MG Tab PO PRN (13:37)
--- NOTE | 2021-01-06 16:42 | PCM.EKG ---
#1 Interpretation EKG Date: 12/30/20 Time: 07:25 Rhythm: NSR Rate (Beats/Min): 61 [place]: Normal P-Wave: Present QRS: Normal ST-T: Normal QT: Normal Comparison: NA - No Prior EKG EKG Interpretation Comments: Normal EKG
--- NOTE | 2021-01-13 14:41 | OR ---
DATE OF PROCEDURE: 12/30/2020 SURGEON: Lambert Burris MD PREOPERATIVE DIAGNOSIS: Osteoarthritis, left hip. POSTOPERATIVE DIAGNOSIS: Osteoarthritis, left hip, with impingement and degenerative labral tear. PROCEDURE PERFORMED: Left total hip arthroplasty using Josef M/L taper stem size 12.5 extended offset, 60 mm trabecular metal cup, +0 36 mm femoral head. LAW EXAMINER: SETH Faria ANESTHESIA: Spinal with sedation. INDICATIONS: Jasen is a 80-year-old gentleman with a history of progressive and persistent pain in his left hip. He has failed conservative treatment. X-rays reveal exostosis, impingement, and moderate degenerative changes. He now presents for left total hip arthroplasty. Risks, benefits, and potential complications of the procedure were discussed. DESCRIPTION OF PROCEDURE: After adequate anesthesia was obtained, the patient was placed in the lateral decubitus position and secured with the hip positioner. The left hip and leg were prepped and draped in a sterile fashion. A longitudinal incision was made over the greater trochanter and carried down through the subcutaneous tissues, and hemostasis was obtained with electrocautery. IT band and tensor fascia were split in line with their fibers, and a Charnley retractor was placed. The short external rotators were taken off the greater trochanter with electrocautery, and the capsule was opened in a T-fashion. The hip was dislocated. Retractor was placed about the femoral neck, and the femoral neck was cut with an oscillating saw. Retractor was then placed about the acetabulum. Examination revealed extensive maceration of the labrum anteriorly. Remnants of the labrum were excised. Soft tissues were cleared from the central acetabulum which was sequentially reamed to 60 mm. This had good subchondral bone. A lateral osteophyte exostosis was removed with a combination of osteotome and rongeur. Our trabecular metal Continuum cup was press-fit into position and additional fixation obtained with an acetabular screw. Excellent purchase was obtained with this. The cup was irrigated, and standard liner was secured into the cup. Attention was returned to the femur. A box osteotome was used to remove the lateral femoral neck cortex. A hand awl was placed down the canal, and the lateralizing reamer was utilized. The canal was then sequentially broached to 12.5. An extended offset neck trial was utilized with 0 neck length showing excellent stability, and this appeared to recreate limb length. The trials were removed. The stem was press-fit into position with excellent fit and fill. Trial reduction was again done with 0 neck length which was selected and placed onto the [place] taper, tapped into position, and the hip was reduced. It showed good tension and extension and very good stability in flexion, adduction, and internal rotation. The hip was irrigated with pulse lavage. This was followed by dilute Betadine solution which was left in place for 2-1/2 minutes. The hip was irrigated once again with pulse lavage. The capsule was closed with #2 Ethibond. The IT band also closed with #2 Ethibond in a running locking fashion. The skin was closed with 2-0 Vicryl and a running 3-0 Monocryl. Steri-Strips were applied. Sterile dressing was then placed. The patient tolerated the procedure well. There were no complications. He was taken from the operating room in stable condition. Lambert Burris MD /[id number]
== END 2021-01-02 17:10 | disposition home or self-care (01) | DRG 470 ==
LOC: JP.SDS 06:54 → EDSTATUS 07:30 → JP.MS 11:34
PROVIDERS: ADMIT Specialist; ATTEND Specialist
PROC: 0SRB01A Replacement of Left Hip Joint with Metal Synthetic Substitute, Uncemented, Open Approach (ICD-10-PCS; principal; 2020-12-30)
DX: M16.12 Unilateral primary osteoarthritis, left hip (principal); D62 Acute posthemorrhagic anemia; S73.102A Unspecified sprain of left hip, initial encounter; M25.852 Other specified joint disorders, left hip; E11.9 Type 2 diabetes mellitus without complications; I10 Essential (primary) hypertension; G47.30 Sleep apnea, unspecified; Z79.82 Long term (current) use of aspirin; Z79.899 Other long term (current) drug therapy; X58.XXXA Exposure to other specified factors, initial encounter
CPT/HCPCS: 27130; 36415; 72170; 72170-26; 82947; 85027; 86850; 86900; 86901; 93005; 97110-GP; 97140-GP; 97162-GP; 97165-GO; 97530-GP; 97535-GO; 97535-GP; A9270-GY; C1713; C1776; J0690; J1885; J2250; J2270; J2704; J3010; J7030; J7120

== ENCOUNTER 2024-12-17 08:33 | Emergency (ER) | payer MEDICARE, OTHER | END 2024-12-17 09:23 | disposition home or self-care (01) | LOC: JP.ED 08:33 | DX: S60.445A External constriction of left ring finger, initial encounter (principal); I10 Essential (primary) hypertension; E11.9 Type 2 diabetes mellitus without complications; Z91.09 Other allergy status, other than to drugs and biological substances; Z79.82 Long term (current) use of aspirin; Z79.84 Long term (current) use of oral hypoglycemic drugs; Z79.899 Other long term (current) drug therapy; Z87.891 Personal history of nicotine dependence; Z86.16 Personal history of COVID-19; W49.04XA Ring or other jewelry causing external constriction, initial encounter | CPT/HCPCS: 99282; 99283 ==